=== PATIENT | female | born 1965 | race Caucasian/White ===

== ENCOUNTER 2021-03-17 11:53 | Emergency (ER) | payer BC ==
[2021-03-17 13:15] LABS: HEMOGLOBIN 14.7 gm/dl (12.3-15.3); RED BLOOD COUNT 4.9 M/UL (4.00-5.10); WHITE BLOOD COUNT 7.8 K/UL (4.5-11.0)
[2021-03-17 13:34] LABS: BUN/CREATININE RATIO 15 (0-10)
[2021-03-17] MEDS ORDERED: HYDROCODON-ACE1 EAC4 PO (16:27)
[2021-03-17] MEDS ORDERED: ZOFRAN ODT 4 MG4 MG SL (16:27)
== END 2021-03-17 16:44 | disposition home or self-care (01) ==
LOC: ER1 11:53
PROVIDERS: Emergency Medicine
DX: R10.84 Generalized abdominal pain (principal); E11.9 Type 2 diabetes mellitus without complications; Z79.84 Long term (current) use of oral hypoglycemic drugs
CPT/HCPCS: 80053; 81001; 83690; 84703; 85025; 96374; 96375; 99284; J2270; J2405; J2550; Q9967